=== PATIENT | female | born 1955 | race Caucasian/White ===

== ENCOUNTER 2022-04-25 12:04 | Emergency (ER) | payer MEDICARE, SELFPAY ==
[2022-04-25] VITALS (14 sets, daily range): BP systolic 112–147; BP diastolic 70–111; PULSE 63–89; RESP 17–33; TEMP 36.8; O2SAT 100
--- NOTE | ~2022-04-25 | XR_ITS ---
EXAMINATION: XR chest 2V 04/25/2022 13:01 INDICATION: Shortness of breath. Atrial fibrillation. PROCEDURE: PA and lateral views of the chest COMPARISON: No prior studies for comparison. FINDINGS: The lungs are clear. The cardiomediastinal silhouette is within normal limits. There are no pleural effusions. There is no pneumothorax suspected. There are cholecystectomy clips. There i s a right shoulder arthroplasty. IMPRESSION: 1: NO ACUTE CARDIOPULMONARY DISEASE. Reviewed, dictated and finalized at location [facility]
--- NOTE | 2022-04-25 12:07 | ECG_ITS ---
Measurements Intervals [place] Rate: 77 P: 49 ID: [id number] QRS: -11 QRSD: 94 T: -9 QT: 413 QTc: 468 Interpretive Statements SINUS RHYTHM WITH SHORT ID INTERVAL WITH FREQUENT SUPRAVENTRICULAR PREMATURE COMPLEXES NONSPECIFIC T-WAVE ABNORMALITY ABNORMAL ECG NO PREVIOUS ECG AVAILABLE FOR COMPARISON Electronically Signed On 04-25-2022 14:16:18 [employer] by Jeronimo Mauricio M.D.
--- NOTE | 2022-04-25 12:15 | ED.SOB ---
HPI - SOB/Dyspnea General Chief Complaint: Shortness of Breath/Dyspnea Stated Complaint: SOB Time Seen by Provider: 04/25/22 12:15 Source: patient and family Limitations: no limitations History of Present Illness HPI Narrative: 66 years old white female presented to the ED with shortness of breath since she had COVID infection 1 month ago. Is gotten worse. She denies any fever, chills, nausea, vomiting,. History of anxiety, depression, diabetes, hyperlipidemia Related Data Allergies Allergy/AdvReac Type Severity Reaction Status Date / Time Penicillins Allergy Hives Verified 04/25/22 12:15 Review of Systems Review of Systems: All systems reviewed & are unremarkable except as noted in HPI and below Exam Narrative: General appearance: Well-developed, well-nourished, hyperventilating, restless Skin: Normal color Head: Normocephalic, nontraumatic Eyes: Clear conjunctiva ENT: Oropharynx normal, ears normal, nose normal Neck: Supple, nontender Chest and respiratory: Airway patent, no respiratory distress, no accessory muscle use Heart: Regular rate/rhythm Abdomen: Soft, nontender, no organomegaly, quiet bowel sounds Vascular: Normal peripheral pulses, normal capillary refill. Musculoskeletal: Normal range of motion, nontender back Neurologic: Alert and oriented ?3, [employer] is normal as tested, no gross motor deficit Course Reevaluation(s) Reevaluation #1: Feeling much better after Ativan IV. Patient is ready to go home. Date: 04/25/22 Time: 15:22 Vital Signs Vital signs: Vital Signs Temperature 36.8 C 04/25/22 12:05 Pulse Rate 84 04/25/22 12:05 Respiratory Rate 33 H 04/25/22 12:05 Blood Pressure 147/111 H 04/25/22 12:05 Pulse Oximetry 100 04/25/22 12:05 Oxygen Delivery Room Air 04/25/22 12:05 Temperature 36.8 C 04/25/22 12:05 Pulse Rate 84 04/25/22 12:05 Respiratory Rate 33 H 04/25/22 12:05 Blood Pressure 147/111 H 04/25/22 12:05 Pulse Oximetry 100 04/25/22 12:05 Oxygen Delivery Room Air 04/25/22 12:05 MDM - SOB/Dyspnea MDM Narrative Medical decision making narrative: Patient is 1 month status post COVID infection, been having shortness of breath since. Patient used to be on Xanax for years, stopped 2 years ago. 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 Physical examination showed hyperventilating patient, slightly restless, otherwise physical examination showed no acute abnormalities. Pneumonia, pulmonary embolism, anxiety-like symptoms, hyperventilation syndrome, electrolyte imbalance, anemia, coronary artery disease are my concern. Labs, blood gas on room air chest x-ray, EKG ordered. ABG showed pH of 7.72 consistent with respiratory alkalosis, white blood cell count within normal limit, D-dimer 0.33, chemistry within normal limit, negative COVID test. Patient received 1 mg of Ativan IV with good improvement. Anxiety-like symptoms, hyperventilation syndrome, post-COVID dyspnea are my concern at this time. Clonazepam 0.25 mg twice daily as needed, 14 tablets. The pt was discharged to home.the pt,s condition upon discharge was fair,education was provided to the pt in reference to the final impression,discharge study results,treatment,prognosis and need for follow up . Differential Diagnosis Differential diagnosis: Likely other (Pneumonia, anxiety related symptoms, pulmonary embolism, COVID complication) Imaging Data Radiologist's impression: Impressions Chest X-Ray 04/25/22 13:05 IMPRESSION: 1: NO ACUTE CARDIOPULMONARY DISEASE. ECG Data EKG #1: Attestation: I personally reviewed and interpreted t
[2022-04-25 12:42] LABS: Alveolar/Arterial O2 Gradient 21.6 mmHg; Fractional Inspired Oxygen 21 %; HCO3 ABG 21.3 mEq/l (22.0-26.0); Oxygen Content ABG 21.8 %vol (16.0-22.0); Oxyhemoglobin 97.2 % THb (90.0-100.0); PO2 ABG 108.3 mmHg (80.0-100.0); PO2 FiO2 Ratio Arterial Blood 5.16 %; Total Hemoglobin 15.9 g/dL (12.0-18.0)
[2022-04-25 12:44] LABS: pH ABG 7.727 (7.350-7.450)
[2022-04-25 12:46] LABS: Device ROOM AIR; Modified Allen's Test Pass; PCO2 ABG 16.6 mmHg (35.0-45.0); Site Drawn LEFT RADIAL
[2022-04-25 12:49] LABS: Basophils Absolute Auto 0.1 K/mm3 (0.0-0.1); Basophils Percent Auto 0.9 % (0.2-1.2); Eosinophils Absolute Auto 0.3 K/mm3 (0-0.3); Eosinophils Percent Auto 2.5 % (0-4.4); Hematocrit 46.3 % (37.0-47.0); Hemoglobin 15.4 g/dL (12.0-15.0); Immature Granulocyte Absolute 0.09 K/mm3 (0.00-0.031); Immature Granulocyte Percent A 0.9 % (0-0.5); Lymphocytes Absolute Auto 3.37 K/mm3 (0.9-3.2); Lymphocytes Percent Auto 34.1 % (18.3-44.2); Mean Corpuscular HGB Conc 33.3 g/dl (32-36); Mean Corpuscular Hemoglobin 27.8 pg (26-34); Mean Corpuscular Volume 83.7 fl (80-100); Mean Platelet Volume 9.7 fl (7.4-10.4); Monocytes Absolute Auto 0.6 K/mm3 (0.1-0.6); Monocytes Percent Auto 5.8 % (2.6-8.5); Neutrophils Absolute Auto 5.5 K/mm3 (1.3-6.7); Neutrophils Percent Auto 55.8 % (45.5-73.1); Platelet Count Result 333 k/mm3 (150-375); Red Blood Count 5.53 M/mm3 (4.2-5.4); Red Cell Distribution Width 13.6 % (11.5-14.5); White Blood Count 9.9 K/mm3 (4.5-10.0)
[2022-04-25 13:06] LABS: Alanine Aminotransferase 34 U/L (6-35); Albumin Level 4.3 g/dL (3.5-5.1); Alkaline Phosphatase 102 U/L (38-126); Anion Gap 11 mmol/L (8-16); Aspartate Amino Transferase 25 U/L (14-36); Bilirubin,Total 1.1 mg/dL (0.2-1.3); Blood Urea Nitrogen 20 mg/dL (7-17); Calcium 9.3 mg/dL (8.4-10.2); Carbon Dioxide 22 mmol/L (22-30); Chloride 104 mmol/L (98-107); Estimated CRCL calculation 66 ml/min; Estimated Glomerular Filt Rate > 60; Glucose 157 mg/dL (65-110); Lipase 68 U/L (23-300); Potassium 3.6 mmol/L (3.4-5.0); Sodium 137 mmol/L (137-145)
[2022-04-25 13:15] LABS: Troponin I < 0.012 ng/mL (0.000-0.034)
[2022-04-25 13:23] LABS: Influenza A QL RT-PCR Negative (Negative); Influenza B QL RT-PCR Negative (Negative); SARS-CoV-2 RNA PCR Negative
[2022-04-25 14:37] LABS: INR 1.1; Prothrombin Time 13.7 Seconds (11.1-14.7)
[2022-04-25 14:38] LABS: Partial Thromboplastin Time 26.8 SECONDS (22.3-36.8)
[2022-04-25 14:48] LABS: D Dimer 0.33 ug/mL (<0.48)
[2022-04-25] MEDS: LORazepam INJ (*CRX) 2 MG/ML VIAL 1 MG IV PUSH (15:04)
== END 2022-04-25 15:37 | disposition home or self-care (01) ==
PROVIDERS: Emergency Medicine; Emergency Provider Emergency Medicine; PCP Family Medicine
DX: E87.3 Alkalosis (principal); U09.9 Post COVID-19 condition, unspecified; F41.9 Anxiety disorder, unspecified; Z20.822 Contact with and (suspected) exposure to COVID-19
CPT/HCPCS: 36415; 36600; 71046; 80053; 82805; 83690; 84484; 85025; 85380; 85610; 85730; 87636; 93005; 96374; 99284; J2060